=== PATIENT | female | born 1955 | race Caucasian/White ===

== ENCOUNTER 2018-07-07 13:27 | Inpatient (IN) | payer OTHER ==
[~2018-07-07] VITALS: Ht 165.1 cm; Wt 80.3 kg
[~2018-07-07 13:27] MED LIST: AMBIEN10 MG PO; ATORVASTATIN CA40 MG PO; CELEBREX200MG; NEURONTIN300 MG; NORFLEX100MG; PNEU16DI2; PRILOSEC10 M2 PO; RESTASIS32 EA OP; TIMOPTIC 0.5%1 EACH OP
[2018-07-07] MEDS ORDERED: CYMBALTA20 MG (13:40)
--- NOTE | 2018-07-07 13:41 | NUR ---
PTE REFIERE DOLOR ABDOMINAL SE NEELAM S/V Y SE UBICA EN AREA DE OBSERVACION
--- NOTE | 2018-07-07 16:39 | NUR ---
SE ORIENTA AL PACIENTE SOBRE EL TX. SE EXTRAEN MUESTRAS DE ALISSON BAJO MEDIDAS ASEPTICAS SE ROTULAN Y ENVIAN AL LABORATORIO SE CANALIZA BAJO MEDIDAS ASEPTICAS.
== END 2018-07-25 15:49 | disposition home or self-care (01) | DRG 392 ==
LOC: ER 13:27 → SURG 20:21
PROVIDERS: ADMIT Surgery
PROC: BW21ZZZ Computerized Tomography (CT Scan) of Abdomen and Pelvis (ICD-10-PCS; principal; 2018-07-08)
PROC: 02HV33Z Insertion of Infusion Device into Superior Vena Cava, Percutaneous Approach (ICD-10-PCS; 2018-07-08)
PROC: 3E0436Z Introduction of Nutritional Substance into Central Vein, Percutaneous Approach (ICD-10-PCS; 2018-07-08)
PROC: BW28ZZZ Computerized Tomography (CT Scan) of Head (ICD-10-PCS; 2018-07-13)
DX: K57.20 Diverticulitis of large intestine with perforation and abscess without bleeding (principal); N39.0 Urinary tract infection, site not specified; E86.0 Dehydration; I10 Essential (primary) hypertension; M79.7 Fibromyalgia; K21.9 Gastro-esophageal reflux disease without esophagitis; M06.89 Other specified rheumatoid arthritis, multiple sites; G47.09 Other insomnia; E78.49 Other hyperlipidemia; Z88.0 Allergy status to penicillin

== ENCOUNTER 2018-08-25 09:07 | Outpatient (CLI) | payer OTHER ==
[~2018-08-25 09:07] MED LIST changes: +CYMBALTA20 MG
== END 2018-08-25 17:00 | disposition home or self-care (01) ==
LOC: TOM 09:07
DX: K57.20 Diverticulitis of large intestine with perforation and abscess without bleeding (principal); R10.32 Left lower quadrant pain

== ENCOUNTER 2018-08-29 09:00 | Inpatient (IN) | payer OTHER ==
[~2018-08-29] VITALS: Ht 165.1 cm; Wt 70.3 kg
[2018-08-29] MEDS ORDERED: [UNRECOGNIZED DRUG - OTHER] PO (13:54)
[2018-08-29] MEDS ORDERED: GABAPENTIN300 MG PO (13:55)
[2018-08-29] MEDS ORDERED: ZANTAC300 MG PO (13:56)
[2018-08-29] MEDS ORDERED: METHOTREXATE PO (13:57)
[2018-08-29] MEDS ORDERED: ARIMIDEX PO (14:32)
[2018-08-29] MEDS ORDERED: ORPHENADRI30 MG/1 M1 IM (14:41)
[2018-09-05] MEDS ORDERED: NORFLEX100MG PO (08:24)
[2018-09-08] MEDS ORDERED: INTESTINEX680 M1 PO (11:06)
[2018-09-08] MEDS ORDERED: PERCOCET 5-3251 EACH PO (11:06)
== END 2018-09-08 11:40 | disposition home or self-care (01) | DRG 329 ==
LOC: SURH 09:00 → O/R 09-05 07:25 → SURH 09-05 08:45
PROVIDERS: ADMIT Surgery
PROC: 0D1N4Z4 Bypass Sigmoid Colon to Cutaneous, Percutaneous Endoscopic Approach (ICD-10-PCS; 2018-09-05)
PROC: 0DJD8ZZ Inspection of Lower Intestinal Tract, Via Natural or Artificial Opening Endoscopic (ICD-10-PCS; 2018-09-05)
PROC: 0DTN4ZZ Resection of Sigmoid Colon, Percutaneous Endoscopic Approach (ICD-10-PCS; principal; 2018-09-05 08:45)
DX: K57.20 Diverticulitis of large intestine with perforation and abscess without bleeding (principal); K65.1 Peritoneal abscess; N73.0 Acute parametritis and pelvic cellulitis

== ENCOUNTER → 2019-03-19 | Emergency (ER) | payer OTHER ==
[~2019-03-19] VITALS: Ht 165.1 cm; Wt 64.9 kg
[~2019-03-19] MED LIST changes: +ARIMIDEX PO; +GABAPENTIN300 MG PO; +INTESTINEX680 M1 PO; +METHOTREXATE PO; +NORFLEX100MG PO; +ORPHENADRI30 MG/1 M1 IM; +PERCOCET 5-3251 EACH PO; +PREVACID30 MG; +ZANTAC300 MG PO; +[UNRECOGNIZED DRUG - OTHER]; +[UNRECOGNIZED DRUG - OTHER] PO
== END | disposition home or self-care (01) ==
LOC: ER 12:35
DX: K58.8 Other irritable bowel syndrome (principal)

== ENCOUNTER 2019-12-31 09:11 | Day surgery (SDC) | payer OTHER | END 2019-12-31 12:55 | disposition home or self-care (01) | LOC: AMB-ENDOS 09:11 | PROVIDERS: ATTEND Surgery | DX: K57.32 Diverticulitis of large intestine without perforation or abscess without bleeding (principal); K62.4 Stenosis of anus and rectum; Z20.828 Contact with and (suspected) exposure to other viral communicable diseases ==